=== PATIENT | female | born 1975 | race Caucasian/White ===

== ENCOUNTER 2020-11-22 07:30 | Day surgery (SDC) | payer OTHER ==
[~2020-11-22 07:30] MED LIST: Lidocaine 1%/Sod Bicarbonate in NS 8.4% 1 ML Syringe IDERM PRN; Sodium Chloride 0.9% 10 ML Syringe FLUSH PRN
[2020-11-22] MEDS ORDERED: Ondansetron 4 MG/2 ML SDV ONE ×2 (07:32→09:04)
[2020-11-22] MEDS ORDERED: Midazolam 1 MG/ML 2 ML SDV ONE (07:32)
[2020-11-22] MEDS ORDERED: Propofol 200 MG/20 ML SDV ONE (07:32)
[2020-11-22] MEDS ORDERED: fentaNYL 250 MCG/5 ML SDV ONE (07:32)
[2020-11-22] MEDS ORDERED: Lidocaine 1% 4 ML ONE (07:32)
[2020-11-22] MEDS ORDERED: Rocuronium 50 MG/5 ML Vial ONE (07:32)
[2020-11-22] MEDS ORDERED: Dexamethasone 4 MG/ML 5 ML MDV ONE (07:33)
[2020-11-22] MEDS ORDERED: Lidocaine 1% with EPINEPHrine 1:100,000 10 ML MDV ONE (07:37)
[2020-11-22] MEDS ORDERED: Bupivacaine 0.5% 30 ML SDV ONE (07:37)
[2020-11-22] MEDS ORDERED: Sodium Chloride 0.9% 50 ML SDV ONE (07:37)
[2020-11-22] MEDS: Lactated Ringers 1,000 ML IV SCH ×2 (07:43→11:11)
--- NOTE | 2020-11-22 08:03 | PCM.PREANE ---
Preanesthetic Assessment - Procedure Proposed Procedure: lap assisted vag hyst - Anesthesia/Transfusion/Family Hx Anesthesia History: Prior Anesthesia Without Reaction Family History of Anesthesia Reaction: No Transfusion History: No Prior Transfusion(s) - Review of Systems General: No Symptoms Pulmonary: Cough (this am- dry throat) Cardiovascular: No Symptoms Gastrointestinal: No Symptoms Neurological: No Symptoms Other: Reports: None - Physical Assessment NPO Status Date: 11/21/20 NPO Status Time: 19:00 Vital Signs: Last Vital Signs Temp 97.8 F 11/22/20 07:35 Pulse 77 11/22/20 07:35 Resp 16 11/22/20 07:35 BP 116/74 11/22/20 07:35 Pulse Ox 100 11/22/20 07:35 Height: 5 ft 7 in Weight: 69.7 kg ASA Class: 2 Mental Status: Alert & Oriented x3 Airway Class: Mallampati = 1 Dentition: Reports: Normal Dentition Thyro-Mental Finger Breadths: 3 Mouth Opening Finger Breadths: 3 ROM/Head Extension: Full Lungs: Clear to Auscultation, Normal Respiratory Effort Cardiovascular: Regular Rate, Regular Rhythm - Lab Values: Laboratory Last Values WBC 5.96 K/mm3 (3.98-10.04) 11/22/20 07:42 RBC 4.57 M/mm3 (3.98-5.22) 11/22/20 07:42 Hgb 13.7 gm/dl (11.2-15.7) 11/22/20 07:42 Hct 41.9 % (34.1-44.9) 11/22/20 07:42 MCV 91.7 fl (79.4-94.8) 11/22/20 07:42 MCH 30.0 pg (25.6-32.2) 11/22/20 07:42 MCHC 32.7 g/dl (32.2-35.5) 11/22/20 07:42 RDW Std Deviation 44.8 fL (36.4-46.3) 11/22/20 07:42 Plt Count 316 K/mm3 (182-369) D 11/22/20 07:42 MPV 8.7 fl (9.4-12.3) L 11/22/20 07:42 Neut % (Auto) 60.2 % (34.0-71.1) 11/22/20 07:42 Lymph % (Auto) 23.5 % (19.3-51.7) 11/22/20 07:42 [place] % (Auto) 11.6 % (4.7-12.5) 11/22/20 07:42 Eos % (Auto) 3.0 (0.7-5.8) 11/22/20 07:42 Baso % (Auto) 1.0 % (0.1-1.2) 11/22/20 07:42 Neut # (Auto) 3.59 K/mm3 (1.56-6.13) 11/22/20 07:42 Lymph # (Auto) 1.40 K/mm3 (1.18-3.74) 11/22/20 07:42 [place] # (Auto) 0.69 K/mm3 (0.24-0.36) H 11/22/20 07:42 Eos # (Auto) 0.18 K/mm3 (0.04-0.36) 11/22/20 07:42 Baso # (Auto) 0.06 K/mm3 (0.01-0.08) 11/22/20 07:42 Urine Color Yellow (Yellow) 11/22/20 07:27 Urine Appearance Clear (Clear) 11/22/20 07:27 Urine pH 5.5 (5.0-8.0) 11/22/20 07:27 Ur Specific Whick > or = 1.030 (1.005-1.030) 11/22/20 07:27 Urine Protein Negative (Negative) 11/22/20 07:27 Urine Glucose (UA) Negative (Negative) 11/22/20 07:27 Urine Ketones Negative (Negative) 11/22/20 07:27 Urine Occult Blood Negative (Negative) 11/22/20 07:27 Urine Nitrite Negative (Negative) 11/22/20 07:27 Urine Bilirubin Negative (Negative) 11/22/20 07:27 Urine Urobilinogen 0.2 (0.2-1.0) 11/22/20 07:27 Ur Leukocyte Esterase Negative (Negative) 11/22/20 07:27 Urine HCG, Qual Negative (NEGATIVE) 11/22/20 07:27 - Allergies Allergies/Adverse Reactions: Allergies Allergy/AdvReac Type Severity Reaction Status Date / Time No Known Allergies Allergy Verified 11/21/20 08:29 - Blood Blood Available: Yes - Acknowledgements Anesthesia Type Planned: General Anesthesia Pt an Appropriate Candidate for the Planned Anesthesia: Yes Alternatives and Risks of Anesthesia Discussed w Pt/Guardian: Yes Pt/Guardian Understands and Agrees with Anesthesia Plan: Yes PreAnesthesia Questionnaire HEENT History: Reports: Impaired Vision, Other (See Below) Other HEENT History: wears contacts Cardiovascular History: Reports: None Respiratory History: Reports: Other (See Below) Other Respiratory History: upper respiratory infection Gastrointestinal History: Reports: None Genitourinary History: Reports: Urinary Incontinence 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: Musculoskeletal History: Reports: None Neurological History: Reports: None Psychiatric History: Reports: ADD Endocrine/Metabolic History: Reports: None Hematologic History: Reports: None Immunologic History: Reports: None Oncologic (Cancer) History: Reports: None Dermatologic History: Reports: None - Infectious Disease History Infectious Disease History: Reports: None - Past Surgical History Cardiovascular Surgical History: Reports: None Respiratory Surgical History: Reports: None GI Surgical History: Reports: None Female Surgical History: Reports: Breast Implant Male Surgical History: Reports: None Endocrine Surgical History: Reports: None Neurological Surgical History: Reports: None Musculoskeletal Surgical History: Reports: Arthroscopic Knee Oncologic Surgical History: Reports: None Dermatological Surgical History: Reports: None - SUBSTANCE USE Tobacco Use Status *Q: Current Some Day Tobacco User Tobacco Use Within Last Twelve Months: Cigarettes Second Hand Smoke Exposure: Yes Days Per Week of Alcohol Use: 3 Number of Drinks Per Day: 3 (wine) Total Drinks Per Week: 9 Recreational Drug Use History: No - HOME MEDS Home Medications: Home Meds Amphetamine/Dextroamphetamine [Adderall XR] 10 mg PO TID 11/21/20 [History] Multivitamin 1 tab PO DAILY 11/21/20 [History]
[2020-11-22] MEDS ORDERED: ceFAZolin 1 GM Vial ONE (08:17)
[2020-11-22] MEDS ORDERED: HYDROmorphone 0.5 MG/0.5 ML Syringe IVPUSH PRN (08:45)
[2020-11-22] MEDS ORDERED: Ondansetron 4 MG/2 ML SDV IVPUSH PRN ×2 (08:45→10:23)
[2020-11-22] MEDS ORDERED: fentaNYL 100 MCG/2 ML SDV IVPUSH PRN (08:45)
[2020-11-22] MEDS ORDERED: Lactated Ringers 1,000 ML ONE (08:50)
[2020-11-22] MEDS ORDERED: Ketamine 500 mg/10 ML MDV ONE (08:54)
[2020-11-22] MEDS ORDERED: HYDROmorphone 0.5 MG/0.5 ML Syringe ONE (09:07)
[2020-11-22] MEDS ORDERED: Ketorolac 30 MG/ML SDV ONE (10:05)
[2020-11-22] MEDS ORDERED: Acetaminophen/oxyCODONE 325-5 MG Tab PO PRN (10:23)
--- NOTE | 2020-11-22 10:34 | PCM.OPNOTE ---
- General Post-Op/Procedure Note Date of Surgery/Procedure: 11/22/20 Operative Procedure(s): Laparoscopically assisted total vaginal hysterectomy with bilateral salpingectomy, subfascial mid urethral sling Findings: Uterus was found to be enlarged with a 7 cm fibroid extending off the right corn ual area of the anterior uterus. Ovaries bilaterally were functional and normal in appearance. Fallopian tubes normal bilaterally. Patient has a grade 1 cystocele and grade 1 rectocele. Pre Op Diagnosis: 1. Stress urinary incontinence. 2. Uterine enlargement. 3. Uterine fibroids Post-Op Diagnosis: Same Anesthesia Technique: General ET Tube Other Anesthesia Type: Marcaine 0.5% - 9 cc. Lidocaine quarter percent with [id number] cc Primary Surgeon: Jay Denise Secondary Surgeon: Brittanie Reed Anesthesia Provider: Jonathan lam Internal Medicine Hospitalist: Delfino Spain Reason Internal Medicine Hospitalist Was Necessary: Retraction, assistance, patient safety, quality of care. Pathology: Uterus, bilateral fallopian tubes as one specimen. Fluid Replacement, Intraop: 1,800 Output, Urine Amount: 100 EBL in mLs: 125 Drain/Tube Comments:: Indwelling bladder catheter during surgery onlyremoved at the end of the case. Complications: None Condition: Good Free Text/Narrative:: Surgery duration: 85 minutes The patient was taken to the operating room placed in supine position on the operating table. She received 2 g of Ancef preoperatively for infection prophylaxis. She had signed consent previously. After adequate anesthesia patient was placed in a dorsal lithotomy position. It should be noted she had sequential compression stockings in place for DVT prophylaxis. A latex free indwelling bladder catheter was placed. This was done after adequate prepping and draping. The patient was placed in supine position and 3 laparoscopic port sites were developed. Marcaine 0.5% approximately 3-5 mL was injected at each site. Verres needle was placed and pneumoperitoneum was achieved with 3 L of CO2. Infraumbilical and 2 lateral port sites were developed. Under laparoscopic guidance the upper portion of the hysterectomy was performed. The right fallopian tube was elevated and the mesosalpinx was developed down to the area of the cornea. The ovarian ligament, round ligament and broad ligament were then taken down on the patient's right side using the endoseal vessel closure system. At this time attention was turned to the left side and the same process was performed. Fibroid distended the right cornual area of the uterus somewhat to develop. Vaginal approach was then undertaken. The patient was placed in the dorsal lithotomy position and a weighted speculum was placed in the vagina. The cervix was injected with lidocaine quarter percent with epinephrine 20 mL total. A full circumference incision was made through the epithelium around the cervix. Posterior cul-de-sac was entered without problems. The left uterosacral ligament and then the right uterosacral were taken down using the Enseal vessel closure system. The cardinal ligament and what remained of the uterine vascular vessels and cervical branches of the vessels were managed with the Enseal vessel closure system on each side. Anterior cul-de-sac was then entered and the remaining portion of broad ligament on the right side and a small portion of broad ligament remaining on the left side were then developed in the usual fashion. Uterus was then removed. At this point the uterus was completely removed and sent as specimen. The vaginal cuff was then run with a locked running suture of 0 Monocryl from the 2 o'clock position to the 10 o'clock position. The vagina was closed with a running locked suture of 0 Monocryl. Hemostasis was confirmed this time and no bleeding was noted. Laparoscopy was then performed to ensure hemostasis. Pneumoperitoneum was reestablished and the laparoscope was placed. The pelvis was found to be hemostatically intact. There was no evidence of any bowel adhesion to the vaginal cuff area noted. The sleeves were removed under direct visualization and the upper sleeve was removed after reversal of the pneumoperitoneum. Each of these sites were closed with a single interrupted suture of 3-0 Monocryl. They were further approximated with Dermabond skin glue. Taylor was in place at at the end of the hysterectomy. Bladder therefore was empty. The subfascial mid urethral procedure was. The epithelium overlying the urethra was grasped approximately 1 cm from the urethral meatus and approximately 2 cm cephalad from there with Allis clamps. The area of the skin overlying the medial aspect of the obturator foramen on each side just posterior to the origin the abductor longus muscle was marked with a marking pen. These 2 areas and the sub-fascial layer of the vaginal were then infiltrated with lidocaine quarter percent with epinephrine total of approximately 10 mL was used. incisions made in the epithelium overlying the urethra and 2 small stab wounds 3 mm in length were made in the 2 areas of the panty line of the patient. The subfascial planes were adequately dissected bilaterally to allow placement of the mesh. The helical adapter was then placed through the obturator on patient's left side, then brought out through the vaginal subfascial plane. Mesh was attached to it and then was pulled back through the obturator foramen. Same was done on the right side. Mesh was then snugged up to 8 Dilator 15 mm in diameter which was was used as a spacer to place the mesh in a tension-free position. At this point the mesh was cut off at the skin surface and the dilator was removed. The midline epithelium was closed with a short running suture of 3- 0 Monocryl. Skin incisions were closed with Dermabond skin glue. These bladder was filled with approximately 240 cc of normal saline to facilitate voiding and therefore discharged home. The patient was returned to supine position, awakened from general endotracheal anesthesia and was discharged from operating room in good condition. The Taylor catheter had been removed by this time.
--- NOTE | 2020-11-22 10:39 | PCM.POSTAN ---
POST ANESTHESIA ASSESSMENT - MENTAL STATUS Mental Status: Alert, Oriented - VITAL SIGNS Vital Signs: Last Vital Signs Temp 97.8 F 11/22/20 07:35 Pulse 77 11/22/20 07:35 Resp 16 11/22/20 07:35 BP 116/74 11/22/20 07:35 Pulse Ox 100 11/22/20 07:35 1032 133/76 73 16 98% 97.9 - RESPIRATORY Respiratory Status: Respiratory Rate WNL, Airway Patent, O2 Saturation Stable, Supplemental Oxygen - CARDIOVASCULAR CV Status: Pulse Rate WNL, Blood Pressure Stable - GASTROINTESTINAL GI Status: No Symptoms - PAIN Pain Score: 0 - POST OP HYDRATION Hydration Status: Adequate & Stable
--- NOTE | 2020-11-22 12:35 | PCM48HPAN ---
Post Anesthesia Note - EVALUATION WITHIN 48HRS OF ANESTHETIC Vital Signs in Normal Range: Yes Patient Participated in Evaluation: Yes Respiratory Function Stable: Yes Airway Patent: Yes Cardiovascular Function Stable: Yes Hydration Status Stable: Yes Pain Control Satisfactory: Yes Nausea and Vomiting Control Satisfactory: Yes Mental Status Recovered: Yes Vital Signs: Last Vital Signs Temp 98.7 F 11/22/20 12:05 Pulse 64 11/22/20 12:05 Resp 16 11/22/20 12:05 BP 133/89 11/22/20 12:05 Pulse Ox 100 11/22/20 12:05 - COMMENTS/OBSERVATIONS Free Text/Narrative:: Preparing for home discharge
[2020-11-22 13:24] VITALS: BP 128/92; PULSE 62
[2020-11-22] MEDS ORDERED: Ketorolac 30 MG/ML SDV IVPUSH SCH (16:00)
[2020-11-23] MEDS ORDERED: Ibuprofen 600 MG Tab PO PRN (04:00)
== END 2020-11-22 12:42 | disposition home or self-care (01) ==
LOC: JD.SDS 07:30
PROVIDERS: ATTEND Obstetrics & Gynecology
DX: D25.9 Leiomyoma of uterus, unspecified (principal); N83.8 Other noninflammatory disorders of ovary, fallopian tube and broad ligament; N39.3 Stress incontinence (female) (male); N81.2 Incomplete uterovaginal prolapse; F17.200 Nicotine dependence, unspecified, uncomplicated; Z79.899 Other long term (current) drug therapy; Z98.890 Other specified postprocedural states
CPT/HCPCS: 36415; 57288; 58554; 81003; 81025; 82565; 85025; 86850; 86900; 86901; A9270; C1771; J0690; J1100; J1170; J1885; J2250; J2405; J2704; J2710; J3010; J3490; J7120; 00944

== ENCOUNTER 2024-06-18 12:04 | Emergency (ER) | payer OTHER ==
[2024-06-18 12:17] VITALS: BP 137/88
[2024-06-18 13:07] VITALS: PULSE 69
[2024-06-18] MEDS: Fluorescein 1 MG Ophth Strip EYELF ONE (13:08)
[2024-06-18] MEDS: Proparacaine 0.5% Ophth Soln 15 ML Bottle EYELF ONE (13:08)
[2024-06-18] MEDS: Erythromycin Base 0.5% Ophth Oint 1 GM Tube EYELF ONE (13:08)
== END 2024-06-18 13:06 | disposition home or self-care (01) ==
LOC: JD.ED 12:04
DX: H18.822 Corneal disorder due to contact lens, left eye (principal); Z86.16 Personal history of COVID-19; Z79.899 Other long term (current) drug therapy
CPT/HCPCS: 99283; A9270; J3490

== ENCOUNTER 2024-10-15 18:02 | Emergency (ER) | payer OTHER ==
[2024-10-15] MEDS: Famotidine 20 MG/2 ML SDV IVPUSH ONE (18:43)
[2024-10-15] MEDS: diphenhydrAMINE 50 MG/ML SDV IVPUSH ONE (18:43)
[2024-10-15] MEDS: methylPREDNISolone Sodium Succinate 125 MG/2 ML SDV IVPUSH ONE (18:43)
[2024-10-15 19:21] LABS: BASOPHILS ABSOLUTE AUTO 0.1 K/mm3 (0.0-0.2); BASOPHILS PERCENT AUTO 0.4 % (0.0-1.0); EOSINOPHILS ABSOLUTE AUTO 0.1 K/mm3 (0.0-0.4); EOSINOPHILS PERCENT AUTO 0.6 % (0.0-6.0); HEMATOCRIT 36.4 % (37.0-47.0); HEMOGLOBIN 11.9 gm/dl (12.0-16.0); IMMATURE GRAN PERCENT AUTO 0.6 % (0.0-0.4); LYMPHOCYTES ABSOLUTE AUTO 1.8 K/mm3 (1.0-4.8); MEAN CORPUSCULAR HEMOGLOBIN 28.3 pg (28.0-32.0); MEAN CORPUSCULAR HGB CONC 32.7 g/dl (32.0-36.0); MEAN CORPUSCULAR VOLUME 86.7 fl (83.0-99.0); MEAN PLATELET VOLUME 9.2 fl (9.4-12.3); MONOCYTES ABSOLUTE AUTO 1.5 K/mm3 (0.0-0.8); MONOCYTES PERCENT AUTO 9.4 % (0.0-8.0); NEUTROPHILS ABSOLUTE AUTO 12.4 K/mm3 (1.8-7.7); PLATELET COUNT,PLT 450 K/mm3 (150-400); WHITE BLOOD CELL COUNT,WBC 15.93 K/mm3 (3.9-11.3)
[2024-10-15 19:30] LABS: A/G RATIO 0.6 (1-2); ALBUMIN 2.7 g/dl (3.4-5.0); ANION GAP 11.1 (5-15); BILIRUBIN TOTAL 0.4 mg/dL (0.2-1.0); BUN/CREATININE RATIO 17.5 (14-18); C-REACTIVE PROTEIN 12.14 mg/dL (<0.30); CALCIUM 8.2 mg/dL (8.5-10.1); CREATININE 0.8 mg/dL (0.55-1.02); EST CRCL DRUG DOSING (CG) 78.8 mL/min; POTASSIUM,K 3.1 mEq/L (3.5-5.1); PROTEIN TOTAL,TP 7.5 g/dl (6.4-8.2)
[2024-10-15] MEDS: Sodium Chloride 0.9% 1,000 ML IV ONE (19:35)
[2024-10-15] MEDS: Iopamidol 612 MG/ML 100 ML Bottle IVPUSH ONE (19:36)
[2024-10-15] MEDS: Sodium Chloride 0.9% 10 ML Syringe FLUSH PRN (19:36)
[2024-10-15] MEDS: Sodium Chloride 0.9% 10 ML Syringe FLUSH ONE (19:36)
[2024-10-15] MEDS ORDERED: VANCOmycin 1.25 GM/250 ML 1.25 GM in Premix Bag 1 BAG IV ONE (21:18)
[2024-10-15] MEDS ORDERED: Acetaminophen 325 MG/10.15 ML PO PRN (21:33)
[2024-10-15] MEDS ORDERED: Ibuprofen Susp 100 MG/5 ML 5 ML UD Cup PO PRN ×2 (21:34→21:39)
[2024-10-15] MEDS ORDERED: Acetaminophen 325 MG/10.15 ML PO SCH (21:45)
[2024-10-15] MEDS ORDERED: Sodium Chloride 0.9% 1,000 ML IV SCH (21:45)
[2024-10-15] MEDS: Cefepime 2 GM Vial IVPUSH ONE (22:10)
[2024-10-15] MEDS: VANCOmycin 1.25 GM/250 ML 1.25 GM in Premix Bag 1 BAG IV ONE (22:10)
[2024-10-15] MEDS: Potassium Bicarbonate/Cit Ac 20 MEQ Effervescent Tab PO ONE (22:10)
[2024-10-16 00:22] VITALS: BP 130/85; PULSE 94
== END 2024-10-15 22:40 | disposition left against medical advice (07) ==
LOC: JD.ED 18:02
DX: A41.9 Sepsis, unspecified organism (principal); K12.2 Cellulitis and abscess of mouth; E87.6 Hypokalemia; Z86.16 Personal history of COVID-19
CPT/HCPCS: 36415; 70491; 70491-26; 80053; 85025; 86140; 87040; 87651-QW; 96361; 96374; 96375; 99284-25; 99285; A9270-GY; J0692; J1200; J2919; J7030; Q9967

== ENCOUNTER 2024-10-17 03:09 | Emergency (ER) | payer OTHER ==
[2024-10-17] MEDS ORDERED: Sodium Chloride 0.9% 10 ML Syringe FLUSH PRN (03:13)
[2024-10-17 03:32] LABS: HEMATOCRIT 32.4 % (37.0-47.0); HEMOGLOBIN 10.6 gm/dl (12.0-16.0); MEAN CORPUSCULAR HEMOGLOBIN 28.4 pg (28.0-32.0); MEAN CORPUSCULAR HGB CONC 32.7 g/dl (32.0-36.0); MEAN CORPUSCULAR VOLUME 86.9 fl (83.0-99.0); PLATELET COUNT,PLT 511 K/mm3 (150-400); RED BLOOD CELL COUNT 3.73 M/mm3 (4.10-5.30); WHITE BLOOD CELL COUNT,WBC 10.47 K/mm3 (3.9-11.3)
[2024-10-17 04:01] LABS: LACTIC ACID 1.8 mmol/L (0.4-2.0)
[2024-10-17 04:08] LABS: A/G RATIO 0.6 (1-2); ALBUMIN 2.7 g/dl (3.4-5.0); ANION GAP 12.8 (5-15); BILIRUBIN TOTAL 0.1 mg/dL (0.2-1.0); BUN/CREATININE RATIO 26.3 (14-18); C-REACTIVE PROTEIN 5.33 mg/dL (<0.30); CALCIUM 8.7 mg/dL (8.5-10.1); CREATININE 0.8 mg/dL (0.55-1.02); EST CRCL DRUG DOSING (CG) 80.9 mL/min; POTASSIUM,K 2.8 mEq/L (3.5-5.1)
[2024-10-17 04:13] LABS: BAND PERCENT MAN 0 % (0-10); BASOPHILS PERCENT MAN 0 (0.1-1.2); EOSINOPHILS PERCENT MAN 1 % (0.7-5.8); LYMPHOCYTES % ATYPICAL MANUAL 0 %; LYMPHOCYTES PERCENT MAN 25 % (20-40); MONOCYTES PERCENT MAN 8 % (2-10)
[2024-10-17] MEDS: cefTRIAXone 2 GM Vial IVPUSH ONE (04:14)
[2024-10-17 04:15] LABS: TARGET CELLS FEW
[2024-10-17 04:16] LABS: TOXIC GRANULATION 1+ SLIGHT
[2024-10-17 04:17] LABS: PLATELET COUNT ESTIMATE INCREASED
[2024-10-17] MEDS: Potassium Bicarbonate/Cit Ac 20 MEQ Effervescent Tab PO ONE (04:44)
[2024-10-17 04:47] VITALS: BP 143/66; PULSE 97
== END 2024-10-17 04:55 | disposition home or self-care (01) ==
LOC: JD.ED 03:09
DX: K12.2 Cellulitis and abscess of mouth (principal); Z79.899 Other long term (current) drug therapy; Z86.16 Personal history of COVID-19
CPT/HCPCS: 36415; 80053; 83605; 83735; 85007; 85027; 86140; 96374; 99283; A9270; J0696; 99284